=== PATIENT | female | born 1980 | race Caucasian/White ===

== ENCOUNTER → 2016-11-30 | Outpatient (CLI) | payer MEDICAID ==
--- NOTE | 2016-11-30 15:55 | RADIOLOGY REPORT (SQ) ---
EXAM DESCRIPTION: U/S [id number] TRNABD 1GES W/ODOP COMPLETED DATE/TIME: 11/30/2016 3:17 pm REASON FOR STUDY: ENCOUNTER FOR SUPERVISION OF NORMAL , FIRST TRIMESTER COMPARISON: None. TECHNIQUE: Transabdominal static and realtime grayscale images acquired of the pelvis. Additional se lected spectral and color Doppler images recorded. All images stored on PACs. bHCG: Not available. LIMITATIONS: None. FINDINGS: FETUS: Living intrauterine . EGA: 7 week 1 day. HARRIETT: 07/18/2017. FHR: 141 beats per minute. SUBCHORIONIC BLEED: No. SIZE OF BLEED: Not applicable. UTERUS: No masses. No anomalies. CERVICAL LENGTH: 3.1 cm. Closed. RIGHT ADNEXA: Normal ovary with normal vascular flow. No adnexal free fluid. 2.0 cm cyst. LEFT ADNEXA: Normal ovary with normal vascular flow. No adnexal free fluid. No adnexal masses. FREE FLUID: None. OTHER: No other significant finding. IMPRESSION: LIVING INTRAUTERINE . EGA 7 WEEK 1 DAY. Trimester of : First - 0 to 13 weeks. TECHNICAL DOCUMENTATION: JOB ID: [id number] [employer]- All Rights Reserved
== END ==
LOC: RAD 14:43
PROVIDERS: ATTEND Obstetrics & Gynecology
DX: Z34.91 Encounter for supervision of normal pregnancy, unspecified, first trimester (principal)
CPT/HCPCS: 76801

== ENCOUNTER 2017-02-04 15:35 | Emergency (ER) | payer MEDICAID | END 2017-02-04 15:58 | disposition left against medical advice (07) | LOC: ER 15:35 | DX: Z53.21 Procedure and treatment not carried out due to patient leaving prior to being seen by health care provider (principal) ==

== ENCOUNTER 2017-02-22 12:30 | Emergency (ER) | payer MEDICAID ==
[2017-02-22] MEDS ORDERED: METOCLOPRAMIDE HCL 10 MG TABLET PO ONE (12:57)
[2017-02-22] MEDS ORDERED: DIPHENHYDRAMINE HCL 25 MG CAPSULE PO ONE (12:58)
--- NOTE | 2017-02-22 12:59 | ER Document Report ---
ED Medical Screen (RME) - General Chief Complaint: Vomiting Stated Complaint: VOMITING Time Seen by Provider: 02/22/17 12:51 Notes: This 36-year-old female patient who is 20 weeks comes emergency room complaining of onset about 3 PM yesterday of nausea, vomiting, abdominal cramps , headache. She checked in on 02/04/2017 with similar symptoms but left without being seen. Her current medications are directly just, Xanax, Celexa, and Ultram. There is no bleeding, there is no discharge. I have greeted and performed a rapid initial assessment of this patient. A comprehensive ED assessment and evaluation of the patient, analysis of test results and completion of the medical decision making process will be conducted by additional ED providers. TRAVEL OUTSIDE OF THE [place] IN LAST 30 DAYS: No - Related Data Allergies/Adverse Reactions: No Known Allergies Allergy (Verified 05/18/13 08:18) Past Medical History - Social History Frequency of alcohol use: None Drug Abuse: None Family history: Reviewed & Not Pertinent Neurological Medical History: Reports: Hx Migraine Renal/ Medical History: Reports: Hx Kidney Stones. Denies: Hx Peritoneal Dialysis Psychiatric Medical History: Reports: Hx Depression - Immunizations Hx Diphtheria, Pertussis, Tetanus Vaccination: No Physical Exam - Vital signs Vitals: Temp Pulse Resp BP Pulse Ox 97.9 F 77 15 121/71 99 02/22/17 12:33 02/22/17 12:33 02/22/17 12:33 02/22/17 12:33 02/22/17 12:33 Course - Vital Signs Vital signs: Temp Pulse Resp BP Pulse Ox 97.9 F 77 15 121/71 99 02/22/17 12:33 02/22/17 12:33 02/22/17 12:33 02/22/17 12:33 02/22/17 12:33
[2017-02-22 13:37] LABS: ABSOLUTE LYMPHOCYTES (AUTO) 1.4 10^3/uL (0.5-4.7); ABSOLUTE MONOCYTES (AUTO) 0.3 10^3/uL (0.1-1.4); ABSOLUTE NEUT (AUTO) 6.1 10^3/uL (1.7-8.2); BASOPHILS % (AUTO) 0.1 % (0-2); EOSINOPHILS % (AUTO) 0.4 % (0-6); HEMATOCRIT 34.4 % (36.0-47.0); HEMOGLOBIN 12.1 g/dL (12.0-15.5); HGB HCT DIFFERENCE 1.9; LYMPHOCYTES % (AUTO) 17.4 % (13-45); MEAN CORPUSCULAR HGB CONC 35.1 g/dL (32.0-36.0); MEAN CORPUSCULAR VOLUME 91 fl (80-97); MONOCYTES % (AUTO) 4.4 % (3-13); RED BLOOD COUNT 3.78 10^6/uL (3.72-5.28); RED CELL DISTRIBUTION WIDTH 13.1 % (11.5-14.0); SEGMENTED NEUTROPHILS % (AUTO) 77.7 % (42-78); WHITE BLOOD COUNT 7.8 10^3/uL (4.0-10.5)
[2017-02-22 13:46] LABS: AMORPHOUS SEDIMENT,URINE TRACE /HPF; APPEARANCE,URINE SLIGHTLY-CLOUDY; BILIRUBIN,URINE NEGATIVE (NEGATIVE); GLUCOSE, URINE NEGATIVE (NEGATIVE); KETONES,URINE NEGATIVE (NEGATIVE); LEUKOCYTE ESTERASE,URINE NEGATIVE (NEGATIVE); NITRITE,URINE NEGATIVE (NEGATIVE); PROTEIN,URINE NEGATIVE (NEGATIVE); URINE SPECIFIC GRAVITY 1.012; UROBILINOGEN,URINE NEGATIVE mg/dL (<2.0)
[2017-02-22 13:53] LABS: ALANINE AMINOTRANSFERASE 24 U/L (9-52); ALBUMIN 4.1 g/dL (3.5-5.0); ALKALINE PHOSPHATASE 49 U/L (38-126); ANION GAP 11 (5-19); ASPARTATE AMINO TRANSFERASE 18 U/L (14-36); BILIRUBIN,DIRECT 0.3 mg/dL (0.0-0.4); BILIRUBIN,TOTAL 0.4 mg/dL (0.2-1.3); BLOOD UREA NITROGEN 6 mg/dL (7-20); CALCIUM 9.4 mg/dL (8.4-10.2); CARBON DIOXIDE 23 mmol/L (22-30); CHLORIDE 105 mmol/L (98-107); CREATININE RESULT 0.46 mg/dL (0.52-1.25); GLUCOSE 91 mg/dL (75-110); POTASSIUM 3.8 mmol/L (3.6-5.0); SODIUM 138.5 mmol/L (137-145); TOTAL PROTEIN 7.4 g/dL (6.3-8.2)
--- NOTE | 2017-02-22 13:54 | ER Document Report ---
ED General - General Chief Complaint: Vomiting Stated Complaint: VOMITING Time Seen by Provider: 02/22/17 12:51 Mode of Arrival: Ambulatory Information source: Patient Notes: 36-year-old female who is 20 weeks presents with complaints of nausea vomiting since eating yesterday. Patient denies any fevers or chills notes she has vomited multiple times. Denies any diarrhea. Denies any abdominal pain vaginal bleeding TRAVEL OUTSIDE OF THE [place] IN LAST 30 DAYS: No - HPI Onset: Yesterday Onset/Duration: Sudden Quality of pain: Cramping Severity: Mild Pain Level: 1 Associated symptoms: Nausea, Vomiting Exacerbated by: Denies Relieved by: Denies Similar symptoms previously: No Recently seen / treated by doctor: No - Related Data Allergies/Adverse Reactions: No Known Allergies Allergy (Verified 05/18/13 08:18) Home Medications: Current Home Medications Citalopram Hydrobromide [Citalopram HBr] 1 tab PO DAILY 02/22/17 [History] Ondansetron [Ondansetron Odt] 1 tab SL Q4H 02/22/17 [History] Tramadol HCl [Tramadol HCl] 2 tab PO BID 02/22/17 [History] Past Medical History - Social History Smoking Status: Former Smoker Cigarette use (# per day): No Chew tobacco use (# tins/day): No Smoking Education Provided: No Frequency of alcohol use: None Drug Abuse: None Family History: Reviewed & Not Pertinent Patient has suicidal ideation: No Patient has homicidal ideation: No Neurological Medical History: Reports: Hx Migraine Renal/ Medical History: Reports: Hx Kidney Stones. Denies: Hx Peritoneal Dialysis Psychiatric Medical History: Reports: Hx Depression - Immunizations Hx Diphtheria, Pertussis, Tetanus Vaccination: No Review of Systems - Review of Systems Notes: REVIEW OF SYSTEMS: CONSTITUTIONAL : Denies fever, chills, or sweats. Denies recent illness. EENT: Denies eye, ear, throat, or mouth pain or symptoms. Denies nasal or sinus congestion or discharge. Denies throat, tongue, or mouth swelling or difficulty swallowing. CARDIOVASCULAR: Denies chest pain. Denies palpitations or racing or irregular heart beat. Denies ankle edema. RESPIRATORY: Denies cough, cold, or chest congestion. Denies shortness of breath, difficulty breathing, or wheezing. GASTROINTESTINAL: Admits to nausea vomiting GENITOURINARY: Denies difficulty urinating, painful urination, burning, frequency, blood in urine, or discharge. FEMALE GENITOURINARY: Denies vaginal bleeding, heavy or abnormal periods, irregular periods. Denies vaginal discharge or odor. MUSCULOSKELETAL: Denies back or neck pain or stiffness. Denies joint pain or swelling. SKIN: Denies rash, lesions or sores. HEMATOLOGIC : Denies easy bruising or bleeding. LYMPHATIC: Denies swollen, enlarged glands. NEUROLOGICAL: Denies confusion or altered mental status. Denies passing out or loss of consciousness. Denies dizziness or lightheadedness. Denies headache. Denies weakness or paralysis or loss of use of either side. Denies problems with gait or speech. Denies sensory loss, numbness, or tingling. Denies seizures. PSYCHIATRIC: Denies anxiety or stress. Denies depression, suicidal ideation, or homicidal ideation. ALL OTHER SYSTEMS REVIEWED AND NEGATIVE. PHYSICAL EXAMINATION: GENERAL: Well-appearing, well-nourished and in no acute distress. HEAD: Atraumatic, normocephalic. EYES: Pupils equal round and reactive to light, extraocular movements intact, conjunctiva are normal. ENT: Nares patent, oropharynx clear without exudates. Moist mucous membranes. NECK: Normal range of motion, supple without lymphadenopathy LUNGS: Breath sounds clear to auscultation bilaterally and equal. No wheezes rales or rhonchi. HEART: Regular rate and rhythm without murmurs ABDOMEN: Soft, gravid abdomen nontender Female : deferred Musculoskeletal: Normal range of motion, no pitting or edema. No cyanosis. NEUROLOGICAL: Cranial nerves grossly intact. Normal speech, normal gait. Normal sensory, motor exams PSYCH: Normal mood, normal affect. SKIN: Warm, Dry, normal turgor, no rashes or lesions noted. Dictation was performed using [employer] voice recognition software Physical Exam - Vital signs Vitals: Temp Pulse Resp BP Pulse Ox 97.9 F 77 15 121/71 99 02/22/17 12:33 02/22/17 12:33 02/22/17 12:33 02/22/17 12:33 02/22/17 12:33 Course - Re-evaluation Re-evalutation: 02/22/17 14:23 Patient was given oral medication and subsequently vomited that back, she will be given IV fluids 02/22/17 16:17 Pt notes she is feeling better, will dc home with nausea medication and follow up 02/22/17 16:34 After performing a Medical Screening Examination, I estimate there is LOW risk for ACUTE APPENDICITIS, BOWEL OBSTRUCTION, ACUTE CHOLECYSTITIS, PERFORATED DIVERTICULITIS, INCARCERATED HERNIA, PANCREATITIS, PELVIC INFLAMMATORY DISEASE, PERFORATED ULCER, ECTOPIC , or TUBO-OVARIAN ABSCESS, thus I consider the discharge disposition reasonable. Also, there is no evidence or peritonitis , sepsis, or toxicity. I have reevaluated this patient multiple times and no significant life threatening changes are noted. The patient and I have discussed the diagnosis and risks, and we agree with discharging home with close follow-up with the understanding that symptoms and presentations can change. We also discussed returning to the Emergency Department immediately if new or worsening symptoms occur. We have discussed the symptoms which are most concerning (e.g., bloody stool, fever, changing or worsening pain, vomiting) that necessitate immediate return. - Vital Signs Vital signs: Temp Pulse Resp BP Pulse Ox 97.9 F 77 15 121/71 99 02/22/17 12:33 02/22/17 12:33 02/22/17 12:33 02/22/17 12:33 02/22/17 12:33 - Laboratory Result Diagrams: 02/22/17 13:19 02/22/17 13:19 Laboratory results interpreted by me: 02/22/17 02/22/17 13:19 13:19 Hct 34.4 L BUN 6 L Creatinine 0.46 L Discharge - Discharge Clinical Impression: Nausea/vomiting in Condition: Stable Disposition: HOME, SELF-CARE Instructions: Antinausea Medication ([facility]) Prescriptions: Ondansetron HCl [Zofran 8 mg Tablet] 8 mg PO Q8HP PRN #30 tablet PRN Reason: Promethazine HCl [Phenergan 25 mg Supp.rect] 1 supp RI Q6H #12 supp.rect Referrals: KIMBERLY WORTHINGTON PA [Primary Care Provider] - Follow up tomorrow
[2017-02-22] MEDS ORDERED: NORMAL SALINE 1000 ML 1,000 ML IV ONE (14:15)
[2017-02-22] MEDS ORDERED: PROMETHAZINE HCL INJ 25 MG/1 ML VIAL IM ONE (14:16)
[2017-02-22] MEDS ORDERED: ONDANSETRON HCL INJ/PF 4 MG/2 ML SDV IV ONE (16:24)
[2017-02-22 16:43] VITALS: BP 111/65
== END 2017-02-22 17:00 | disposition home or self-care (01) ==
LOC: ER 12:30
DX: R11.2 Nausea with vomiting, unspecified (principal); Z3A.20 20 weeks gestation of pregnancy; Z79.899 Other long term (current) drug therapy; Z87.891 Personal history of nicotine dependence
CPT/HCPCS: 99284; 36415; 85025; 80053; 81001; J3490 ×2; J2550; J2405; J7030

== ENCOUNTER 2017-05-18 08:45 | Outpatient (CLI) | payer MEDICAID ==
[2017-05-18 09:33] LABS: APPEARANCE,URINE CLEAR; BILIRUBIN,URINE NEGATIVE (NEGATIVE); GLUCOSE, URINE NEGATIVE (NEGATIVE); KETONES,URINE NEGATIVE (NEGATIVE); LEUKOCYTE ESTERASE,URINE NEGATIVE (NEGATIVE); NITRITE,URINE NEGATIVE (NEGATIVE); PROTEIN,URINE NEGATIVE (NEGATIVE); URINE SPECIFIC GRAVITY 1.012; UROBILINOGEN,URINE NEGATIVE mg/dL (<2.0)
[2017-05-18 09:50] LABS: URINE METHADONE SCREEN NEGATIVE; URINE OPIATES LOW NEGATIVE; URINE PHENCYCLIDINE SCREEN NEGATIVE
[2017-05-18 09:57] LABS: URINE BARBITURATES SCREEN UNCONFIRMED POSITIVE
--- NOTE | 2017-05-18 13:04 | RADIOLOGY REPORT (SQ) ---
EXAM DESCRIPTION: U/S OB LIMITED COMPLETED DATE/TIME: 05/18/2017 12:40 pm REASON FOR STUDY: Cervical length, R/O PTL COMPARISON: OB ultrasound 11/30/2016 TECHNIQUE: Limited transabdominal grayscale ultrasound for evaluation of specific requested obstetri donell parameters. LIMITATIONS: None. FINDINGS: CERVICAL LENGTH: 4.6 cm Closed. FHR: 130 beats per minute. PRESENTATION: Breech OTHER: No other significant findings. IMPRESSION: LIMITED OBSTETRICAL ULTRASOUND WITH MEASURED PARAMETERS DELINEATED ABOVE. Trimester of : Third trimester - 28 weeks to delivery. TECHNICAL DOCUMENTATION: JOB ID: [id number] [employer]- All Rights Reserved
== END 2017-05-18 13:55 | disposition home or self-care (01) ==
LOC: LC 08:45
PROVIDERS: ATTEND Student in an Organized Health Care Education/Training Program
PROC: 4A1HXCZ Monitoring of Products of Conception, Cardiac Rate, External Approach (ICD-10-PCS; principal; 2017-05-18)
DX: O47.1 False labor at or after 37 completed weeks of gestation (principal); O36.8130 Decreased fetal movements, third trimester, not applicable or unspecified; O09.523 Supervision of elderly multigravida, third trimester; Z3A.31 31 weeks gestation of pregnancy
CPT/HCPCS: 59899; 81001; 80307; 76815; Q0114

== ENCOUNTER 2017-05-29 13:00 | Outpatient (CLI) | payer MEDICAID ==
[2017-05-29 13:49] LABS: APPEARANCE,URINE SLIGHTLY-CLOUDY; BILIRUBIN,URINE NEGATIVE (NEGATIVE); GLUCOSE, URINE NEGATIVE (NEGATIVE); KETONES,URINE NEGATIVE (NEGATIVE); LEUKOCYTE ESTERASE,URINE NEGATIVE (NEGATIVE); NITRITE,URINE NEGATIVE (NEGATIVE); PROTEIN,URINE NEGATIVE (NEGATIVE); URINE SPECIFIC GRAVITY 1.008; UROBILINOGEN,URINE NEGATIVE mg/dL (<2.0)
[2017-05-29 13:56] LABS: URINE METHADONE SCREEN NEGATIVE; URINE OPIATES LOW NEGATIVE; URINE PHENCYCLIDINE SCREEN NEGATIVE
[2017-05-29 14:05] LABS: URINE BARBITURATES SCREEN UNCONFIRMED POSITIVE
--- NOTE | 2017-05-29 15:25 | Non Stress Test Report ---
Non Stress Test Datetime Report Generated by CPN: 05/29/2017 15:25 DEMOGRAPHIC EGA NST: 32.4 INDICATION Indication for Study: Other MONITORING Monitor Explained: Monitor Explained; Test Explained; Patient Verbalized Understanding Time on Monitor: 05/29/2017 13:22 Time off Monitor: 05/29/2017 13:51 NST Duration: 29 NST INTERVENTIONS NST Interventions: None Physician Notified NST: Dr. Taylor-Jeison BABY A: [id number] BABY A Movement : Present Contraction Frequency : irregular (Annotations: Data stored by [facility] on behalf of user) FHR Baseline : 140 Accelerations : 15X15 Decelerations : None Variability : Moderate 6-25bpm NST Review: Meets Criteria for Reactive NST NST Review and Verified By : ALEXY Dumont Results: Reactive NST REPORT Report Trigger: Send Report
== END 2017-05-29 15:25 | disposition home or self-care (01) ==
LOC: LC 13:00
PROVIDERS: ATTEND Obstetrics & Gynecology
DX: O99.89 Other specified diseases and conditions complicating pregnancy, childbirth and the puerperium (principal); M54.9 Dorsalgia, unspecified; Z3A.32 32 weeks gestation of pregnancy
CPT/HCPCS: 59025; 80307; 81001

== ENCOUNTER 2017-07-08 19:09 | Inpatient (IN) | payer MEDICAID ==
[2017-07-08] MEDS ORDERED: RINGERS SOLUTION,LACTATED 300 ML IV ONE (20:01)
[2017-07-08 20:21] LABS: ABSOLUTE LYMPHOCYTES (AUTO) 1.5 10^3/uL (0.5-4.7); ABSOLUTE MONOCYTES (AUTO) 0.5 10^3/uL (0.1-1.4); ABSOLUTE NEUT (AUTO) 4.8 10^3/uL (1.7-8.2); BASOPHILS % (AUTO) 0.5 % (0-2); EOSINOPHILS % (AUTO) 0.4 % (0-6); HEMATOCRIT 31.9 % (36.0-47.0); HEMOGLOBIN 10.7 g/dL (12.0-15.5); LYMPHOCYTES % (AUTO) 21.3 % (13-45); MEAN CORPUSCULAR HEMOGLOBIN 30.2 pg (27.0-33.4); MEAN CORPUSCULAR HGB CONC 33.5 g/dL (32.0-36.0); MEAN CORPUSCULAR VOLUME 90 fl (80-97); MONOCYTES % (AUTO) 7.5 % (3-13); PLATELET COUNT 221 10^3/uL (150-450); RED BLOOD COUNT 3.54 10^6/uL (3.72-5.28); RED CELL DISTRIBUTION WIDTH 14.1 % (11.5-14.0); SEGMENTED NEUTROPHILS % (AUTO) 70.3 % (42-78); TOTAL CELLS COUNTED % (AUTO) 100 %; WHITE BLOOD COUNT 6.8 10^3/uL (4.0-10.5)
[2017-07-08 20:33] LABS: APPEARANCE,URINE CLOUDY; BILIRUBIN,URINE NEGATIVE (NEGATIVE); COLOR,URINE YELLOW; GLUCOSE, URINE NEGATIVE (NEGATIVE); KETONES,URINE NEGATIVE (NEGATIVE); LEUKOCYTE ESTERASE,URINE NEGATIVE (NEGATIVE); NITRITE,URINE NEGATIVE (NEGATIVE); PROTEIN,URINE NEGATIVE (NEGATIVE); URINE SPECIFIC GRAVITY 1.009; UROBILINOGEN,URINE NEGATIVE mg/dL (<2.0)
[2017-07-08 20:39] LABS: ALANINE AMINOTRANSFERASE 26 U/L (9-52); ALBUMIN 3.1 g/dL (3.5-5.0); ALKALINE PHOSPHATASE 169 U/L (38-126); ANION GAP 8 (5-19); ASPARTATE AMINO TRANSFERASE 15 U/L (14-36); BILIRUBIN,DIRECT 0.1 mg/dL (0.0-0.4); BILIRUBIN,TOTAL 0.2 mg/dL (0.2-1.3); BLOOD UREA NITROGEN 8 mg/dL (7-20); CALCIUM 8.9 mg/dL (8.4-10.2); CARBON DIOXIDE 22 mmol/L (22-30); CHLORIDE 106 mmol/L (98-107); GLUCOSE 87 mg/dL (75-110); POTASSIUM 4.3 mmol/L (3.6-5.0); SODIUM 136.4 mmol/L (137-145); TOTAL PROTEIN 5.9 g/dL (6.3-8.2)
[2017-07-08 20:49] LABS: URINE AMPHETAMINES SCREEN NEGATIVE; URINE COCAINE SCREEN NEGATIVE; URINE MARIJUANA (THC) SCREEN NEGATIVE; URINE METHADONE SCREEN NEGATIVE; URINE PHENCYCLIDINE SCREEN NEGATIVE
[2017-07-08] MEDS ORDERED: ACETAMINOPHEN 325 MG TABLET PO PRN (20:55)
[2017-07-08] MEDS ORDERED: MAG HYDROX/AL HYDROX/SIMETH SUSP 30 ML UDCUP PO PRN (20:55)
[2017-07-08] MEDS ORDERED: DINOPROSTONE 10 MG VAGINAL INSERT.SR PV PRN (20:55)
[2017-07-08] MEDS ORDERED: DINOPROSTONE 10 MG VAGINAL INSERT.SR ONE (20:59)
[2017-07-08 21:06] LABS: URINE BARBITURATES SCREEN UNCONFIRMED POSITIVE; URINE BENZODIAZEPINES SCREEN UNCONFIRMED POSITIVE
[2017-07-08] MEDS ORDERED: ZOLPIDEM TARTRATE 5 MG TABLET ONE (22:52)
[2017-07-08] MEDS: ZOLPIDEM TARTRATE 5 MG TABLET PO SCH (22:56)
[2017-07-08] MEDS: RINGERS SOLUTION,LACTATED 1,000 ML IV PRN (23:06)
[2017-07-09] MEDS: RINGERS SOLUTION,LACTATED 1,000 ML IV PRN (01:56)
[2017-07-09] MEDS ORDERED: NALBUPHINE HCL INJ 10 MG/1 ML AMPULE INJ ONE (03:38)
[2017-07-09] MEDS ORDERED: PROMETHAZINE HCL INJ 25 MG/1 ML VIAL IV ONE (03:38)
[2017-07-09] MEDS ORDERED: NALBUPHINE HCL INJ 10 MG/1 ML AMPULE ONE (03:43)
[2017-07-09] MEDS ORDERED: PROMETHAZINE HCL INJ 25 MG/1 ML VIAL ONE (03:44)
[2017-07-09] MEDS ORDERED: ONDANSETRON HCL INJ/PF 4 MG/2 ML SDV ONE (10:30)
[2017-07-09] MEDS ORDERED: OXYTOCIN/NORMAL SALINE 20 UNIT/1,000 ML RTUINJ ONE (10:47)
--- NOTE | 2017-07-09 14:21 | L&D Progress Notes ---
PROGRESS NOTES Datetime Report Generated by CPN: 07/09/2017 14:21 PROGRESS NOTE Impression Other: IOL-stable Procedures: Artificial ROM; Scalp Electrode Plan: Continue Present Management Informed Consent Obtained: Vaginal Delivery; Induction of Labor; Risks, Benefits and Alternatives Discussed Vital Signs : Reviewed; Within Normal Limits Comment: S: pt. breathing with contractions, thinking about epidural O: VSS, cervix as stated, pit @ 5mu/min A: IUP @ 38w3d IOL secondary to polyhydramnious and uncontrolled GDM A2, AROM with FSE-Very large amount of clear amniotic fluid-pt. and baby tolerated well P: continue IOL with pitocin will increase pit by 2mu/min every 15min starting now. Epidural prn. VAGINAL EXAM Dilatation: 4 Dilatation: 2 Effacement: 80 Effacement: 10 Station: -2 Station: -2 Contractions: q3 MEMBRANES Pooling: Negative Membranes: Ruptured Membranes: Intact Amniotic Fluid Color: Clear FETUS A Monitoring: External US FHR Category: Category I : 38.0 Estimated Weight (gm): 4000 Presentation: Vertex SIGNATURE SIGNATURE: ,[id number];,[id number] SIGNATURE: ,[id number] Assignment: Beverly Royal MD Signature: with User ID: [email or web address] : with User ID: [email or web address]
[2017-07-09] MEDS ORDERED: BUPIVACAINE HCL 0.25 % INJ/PF (2.5 MG/1 ML) 30 ML VIAL ONE (14:34)
[2017-07-09] MEDS ORDERED: EPHEDRINE SULFATE INJ 50 MG/1 ML AMPULE ONE (14:34)
[2017-07-09] MEDS ORDERED: FENTANYL CITRATE INJ/PF 100 MCG/2 ML AMPUL ONE (14:34)
[2017-07-09] MEDS ORDERED: FENTANYL/BUPIVACAINE/NS/PF 200 MCG/100 ML RTUINJ EPI ONE (14:34)
[2017-07-09] MEDS ORDERED: PHENYLEPHRINE HCL INJ/PF 10 MG/1 ML SDV ONE (14:34)
[2017-07-09] MEDS ORDERED: MISOPROSTOL 0.2 MG TABLET ONE (14:35)
[2017-07-09] MEDS ORDERED: LIDOCAINE 1% INJ-PF (10 MG/ML) 30 ML SDV ONE (14:35)
--- NOTE | 2017-07-09 15:54 | L&D Progress Notes ---
PROGRESS NOTES Datetime Report Generated by CPN: 07/09/2017 15:53 PROGRESS NOTE Impression: Normal Progression of Labor Procedures: Sterile Vag Exam Plan: Continue Present Management Informed Consent Obtained: Vaginal Delivery; Risks, Benefits and Alternatives Discussed Vital Signs : Reviewed; Within Normal Limits Comment: Pt reports feeling pressure after epidural. Cvx 5/90/-1. Anticipate . Pelvis adequate for PAULINA. will continue pitocin - currently at 10. VAGINAL EXAM Dilatation: 5 Effacement: 90 Station: -1 FETUS A FHR - Baseline: 155 Monitoring: External US Variability: Moderate 6-25bpm Accelerations: 15X15 Decelerations: None FETUS C SIGNATURE: [id number];[id number] Signature: with User ID: [email or web address]
[2017-07-09] MEDS ORDERED: SODIUM BICARBONATE 8.4% INJ 50 MEQ/50 ML DISP.SYRIN ONE (16:28)
[2017-07-09] MEDS ORDERED: LIDOCAINE 2%/EPINEPHRINE INJ 20 ML VIAL ONE (16:29)
[2017-07-09] MEDS ORDERED: NA PHOS,M-B/NA PHOS,DI-BA (ADULT) 133 ML ENEMA PR PRN (20:15)
[2017-07-09] MEDS ORDERED: BENZOCAINE/MENTHOL AEROSOL SPRAY 56 ML TOP PRN (20:15)
[2017-07-09] MEDS ORDERED: DIPH/PERTUSS(ACELL)/TETANUS VAC/PF 0.5 ML SYR (>=10YO) IM PRN (20:15)
[2017-07-09] MEDS ORDERED: PROMETHAZINE HCL INJ 25 MG/1 ML VIAL IV PRN (20:15)
[2017-07-09] MEDS ORDERED: MEASLES,MUMPS&RUBELLA VACC/PF 0.5 ML VIAL SUBCUT PRN (20:15)
[2017-07-09] MEDS ORDERED: PROMETHAZINE HCL 25 MG TABLET PO PRN (20:15)
[2017-07-09] MEDS ORDERED: GLYCERIN/WITCH HAZEL LEAF 1 EACH MED..PAD TP PRN (20:15)
[2017-07-09] MEDS ORDERED: MAGNESIUM HYDROXIDE SUSP 30 ML UDCUP PO PRN (20:15)
[2017-07-09] MEDS ORDERED: ACETAMINOPHEN WITH CODEINE #3 TABLET PO PRN (20:15)
[2017-07-09] MEDS ORDERED: DIPHENHYDRAMINE HCL 25 MG CAPSULE PO PRN (20:15)
[2017-07-09] MEDS ORDERED: ACETAMINOPHEN 650 MG SUPP.RECT PR PRN (20:15)
[2017-07-09] MEDS ORDERED: PSEUDOEPHEDRINE HCL 30 MG TABLET PO PRN (20:15)
[2017-07-09] MEDS ORDERED: PROMETHAZINE HCL 25 MG SUPP.RECT PR PRN (20:15)
[2017-07-09] MEDS ORDERED: OXYTOCIN/NORMAL SALINE 20 UNIT/1,000 ML RTUINJ IV PRN (20:15)
[2017-07-09] MEDS ORDERED: DIBUCAINE 1% OINTMENT 28 GM TP PRN (20:15)
[2017-07-09] MEDS ORDERED: ZOLPIDEM TARTRATE 5 MG TABLET PO PRN (20:15)
[2017-07-09] MEDS: IBUPROFEN 800 MG TABLET PO SCH (21:05)
--- NOTE | 2017-07-09 21:18 | Warning Signs in Babies ---
VOD Warning Signs Datetime Report Generated by JOAN: 07/09/2017 21:18 VOD#608 -Warning Signs in Babies: Viewed with Parent(s)/Family (Annotations: Data stored by JOAN on behalf of user) (05/18/2017 09:27:Lily Chiang RN)
--- NOTE | 2017-07-09 22:10 | Admission Physical ---
Datetime Report Generated by CPN: 07/09/2017 22:09 CURRENT ADMISSION Chief Complaint: Scheduled Induction of Labor Indication for Induction: Macrosomia; Polyhydramnios Indication for Induction: Term, Intrauterine ; Intact Membranes; Induction of Labor Indication for Induction- Other: GDM that has not been well controlled Admit Plan: Admit to Unit; Initiate Labor Induction Protocol ALLERGIES Medication Allergies: No Medication Allergies: No Known Allergies (07/08/2017) Medication Allergies: No Known Allergies (05/18/2017) Medication Allergies: No Known Allergies (05/18/2013) Latex: No Latex Allergies Food Allergies: none Environmental Allergies: none OBSTETRICAL HISTORY EDC: 07/20/2017 00:00 : 5 Para: 2 Term: 2 : 0 SAB: 2 IAB: 0 Ectopic: 1 Livin Cesareans: 0 VBACs: 0 Multiple Births: 0 Gestational Diabetes: Yes Rh Sensitization: No Incompetent Cervix: No TIARRA: No Infertility: No ART Treatment: No Uterine Anomaly: No IUGR: No Hx Previous C/S: No Macrosomia: No Hx Loss/Stillborn: No PIH: No Hx : No Placenta Previa/Abruption: No Depression/PP Depression: Yes PTL/PROM: No Post Hemorrhage: No Current Procedures: Ultrasound; NST; BPP Obstetrical History Comments: G1: 1998 G2: SAB 13 weeks G3: 2012 G4: SAB 07/2015 G5: ectopic 02/2016 G6: current, polyhydramnios, GDM-on glyburide; expected large @ 4089 grams/9lbs SEE RECORDS Alcohol: No Marijuana : No Cocaine: No Other Illicit Drugs: No Cigarettes: Former Smoker. [id number] MEDICAL HISTORY Diabetes: Yes Blood Transfusion: No Pulmonary Disease (Asthma, TB): No Breast Disease: No Hypertension: No Web Analytics Specialist Surgery: No Heart Disease: No Hosp/Surgery: Yes Autoimmune Disorder: No Anesthetic Complications: No Kidney Disease: No Abnormal Pap Smear: Yes Neuro/Epilepsy: No Psychiatric Disorders: Yes Other Medical Diseases: No Hepatitis/Liver Disease: No Significant Family History: No Varicosities/Phlebitis: No Trauma/Violence : No Thyroid Dysfunction: No Medical History Comments: kidney stones, depression-on celexa, anxiety, abnl paps w/colpo-ASCUS _ +HRHPV, migraines-on fioricet INFECTIOUS HISTORY Gonorrhea: No Genital Herpes: No Chlamydia: Yes Tuberculosis: No Syphilis: No Hepatitis: No HIV/AIDS Exposure: No Rash or Viral Illness: No HPV: Yes Infectious History Comments: Chlamydia 15 yo, + HRHPV PHYSICAL EXAM General: Normal HEENT: Normal Neurologic: Normal Thyroid: Normal Heart: Normal Lungs: Normal Breast: Deferred Back: Normal Abdomen: Normal Genitourinary Exam: Normal Extremities: Normal DTRs: Normal Pelvic Type: Adequate Vital Signs: Reviewed VAGINAL EXAM Dilatation: 5 Dilatation: 4 Dilatation: 2 Effacement: 90 Effacement: 80 Effacement: 10 Station: -1 Station: -2 Station: -2 Contraction Comments: q3 MEMBRANES Pooling: Negative Membranes: Ruptured Membranes: Intact Amniotic Fluid Color: Clear FETUS A EGA: 38.2 Monitoring: External US FHR- Baseline: 120 Variability: Moderate 6-25bpm Accelerations: 15X15 Decelerations: None FHR Category: Category I Estimated Weight (gm): 4000 Presentation: Vertex Admit Comment: Pt discussed with MFM. Induction this week recomended. Risk of shoulder dystocia discussed. Vaginal delivery attempt recomended as the EFW is less than 4500gm. PLANS FOR LABOR AND DELIVERY Labor and Delivery: None Pain Management: Epidural Feeding Preference: Both Benefit of Breast Feed Discussed: Yes Circumcision: Yes INFORMED CONSENT Informed Consent Obtained: Vaginal Delivery; Risks, Benefits and Alternatives Discussed Informed Consent Obtained: Vaginal Delivery; Induction of Labor; Risks, Benefits and Alternatives Discussed Signature: with User ID: [email or web address]
[2017-07-09] MEDS: ACETAMINOPHEN WITH CODEINE #3 TABLET PO PRN (23:55)
[2017-07-10] MEDS: FAMOTIDINE 20 MG TABLET PO SCH ×3 (03:27→21:09)
[2017-07-10] MEDS: ZOLPIDEM TARTRATE 5 MG TABLET PO SCH (03:27)
--- NOTE | 2017-07-10 04:34 | Delivery Summary ---
Del Sum A-C Datetime Report Generated by CPN: 07/10/2017 04:34 DELIVERY PERSONNEL DELIVERY PERSONNEL: [id number] Delivery Doctor:: Beverly Royal MD Labor and Delivery Nurse:: Lily Chiang RN General Farmer/DANCING TEACHER: Ariadna Tre, ST MATERNAL INFORMATION Delivery Anesthesia: Epidural Medications After Delivery: Pitocin Bolus-Please Comment; Pitocin Drip 20 Units/1000ml NSS Estimated Blood Loss (ml): 350 Provider Comments: VMI delivered in MENDEZ presentation in hands and knees. No nuchal cord. Shoulders and body delivered without difficulty. Cord doubly clamped and cut and infant to maternal warmer for NRP and Nursery notified. Placenta delivered intac spontaneously after maternal position changed back to supine. 1st degree perineal laceration repaired in the usual fashion. Good hemostasis. FF at U. Mother stable upon provider leaving the room. Baby taken to the Nursery for transition due to retractions with normal O2 sats. Weight 8#9oz. Apgars 6/9 LABOR SUMMARY EDC: 07/20/2017 00:00 No. Babies in Womb: 1 Attempted: No Labor Anesthesia: Epidural LABOR INFORMATION Reason for Induction: Maternal Diabetes; Polyhydramnios Onset of Labor: 07/09/2017 14:00 Complete Dilatation: 07/09/2017 17:45 (Annotations: Data stored by N on behalf of user) Cervical Ripening Agents: Cervidil Oxytocin: Induction Group B Beta Strep: Negative Steroids Given: None Reason Steroids Not Administered: Not Applicable MEMBRANES Membranes Rupture Method: Artificial Rupture of Membranes: 07/09/2017 13:59 Length of Rupture (hr): 5.98 Amniotic Fluid Color: Clear Amniotic Fluid Amount: Large Amniotic Fluid Odor: Normal STAGES OF LABOR Stage 1 hr: 3 Stage 1 min: 45 Stage 2 hr: 2 Stage 2 min: 13 Stage 3 hr: 0 Stage 3 min: 4 Total Time in Labor hr: 6 Total Time in Labor min: 2 VAGINAL DELIVERY Episiotomy: None Laceration #1: Vaginal Laceration Extension #1: First Degree Laceration Repair: Yes Laceration Repair Note: 1st degree midline perineal laceartion repaired in the usual fashion. Good hemostasis. Sponge Count Correct: Yes Sharps Count Correct: Yes BABY A INFORMATION Infant Delivery Date/Time: 07/09/2017 19:58 Method of Delivery: Vaginal Born in Route : No : N/A Forceps: N/A Vacuum Extraction: N/A Shoulder Dystocia : No PRESENTATION/POSITION BABY A Presentation: Cephalic Cephalic Presentation: Vertex Vertex Position: Left Occipital Anterior Breech Presentation: N/A PLACENTA INFORMATION BABY A Placenta Delivery Time : 07/09/2017 20:02 Placenta Method of Delivery: Spontaneous Placenta Status: Delivered SCORES BABY A Heart Rate 1 min: >100 bpm Resp Effort 1 min: Slow, Irregular Reflex Irritability 1 min: Grimace Muscle Tone 1 min: Active Motion Color 1 min: Blue/Pale SCORE 1 MIN: 6 Heart Rate 5 min: >100 bpm Resp Effort 5 min: Good Cry Reflex Irritability 5 min: Cough or Sneeze or Pulls Away Muscle Tone 5 min: Active Motion Color 5 min: Body [place], Extremities Blue SCORE 5 MIN: 9 INFORMATION BABY A Gestational Age at Delivery: 38.3 Gestational Status: Early Term- 37- 38.6 Weeks Outcome : Liveborn Condition : Stable Sex: Male IDENTIFICATION BABY A Infant Verification Date/Time: 07/09/2017 20:09 ID Band Number: [id number] Mother's Name Verified: Yes RN Verifying : Kelly Herrera RN Additional Verifying Personnel: D. Talita WEIGHT/LENGTH BABY A Infant Birthweight (gm): 3880 Weight (lb): 8 Infant Weight (oz): 9 Infant Length (in): 20.00 Length (cm): 50.80 CORD INFORMATION BABY A No. Cord Vessels: 3 Nuchal Cord : N/A Cord Blood Taken: Yes-For Storage (Mom's Blood type +) Suction: Mouth; Nose; Pharynx ASSESSMENT BABY A Complications: Polyhydramnios Physical Findings at Delivery: Caput Succedaneum; Other Physical Findings- Other: distended abdomen Respirations: Intercostal Retractions; Nasal Flaring Skin to Skin: Yes Skin to Skin Time (min): 2 Healthcare Advisory Services Manager/ALS Called : No Infant Care By: Dl Polanco RN Transferred To: [facility] BABY B INFORMATION : N/A SIGNATURES Signature: with User ID: [email or web address]
[2017-07-10] MEDS: IBUPROFEN 800 MG TABLET PO SCH ×3 (06:17→21:09)
[2017-07-10] MEDS: ACETAMINOPHEN WITH CODEINE #3 TABLET PO PRN (06:21)
[2017-07-10 08:08] LABS: HEMATOCRIT 26.3 % (36.0-47.0); HEMOGLOBIN 8.9 g/dL (12.0-15.5); MEAN CORPUSCULAR HEMOGLOBIN 30.1 pg (27.0-33.4); MEAN CORPUSCULAR HGB CONC 33.7 g/dL (32.0-36.0); MEAN CORPUSCULAR VOLUME 89 fl (80-97); PLATELET COUNT 180 10^3/uL (150-450); RED BLOOD COUNT 2.95 10^6/uL (3.72-5.28); RED CELL DISTRIBUTION WIDTH 14.1 % (11.5-14.0)
[2017-07-10 08:14] LABS: WHITE BLOOD COUNT 13.7 10^3/uL (4.0-10.5)
[2017-07-10] MEDS: SENNOSIDES/DOCUSATE 8.6-50 MG 1 EACH TABLET PO SCH (09:11)
[2017-07-10] MEDS: PRENATAL VITAMIN W DHA CAPSULE PO SCH (09:12)
[2017-07-10] MEDS: FERROUS SULFATE 325 MG TABLET PO SCH ×2 (09:12→17:59)
[2017-07-10] MEDS: DOCUSATE SODIUM 100 MG CAPSULE PO SCH ×2 (09:12→17:59)
--- NOTE | 2017-07-10 10:15 | PDOC PROGRESS REPORT ---
Subjective-OB Subjective: Post Delivery Day: 37 year old. Denies any needs at this time Doing well, moderate bleeding, breast feeding, voiding, ambulating, eating well Physical Exam (OB) Vital Signs: Temp Pulse Resp BP Pulse Ox 97.9 F 88 15 111/56 L 98 07/10/17 08:14 07/10/17 08:14 07/10/17 08:14 07/10/17 08:14 07/10/17 08:14 Intake & Output 07/09/17 07/10/17 07/11/17 06:59 06:59 06:59 Weight 93.7 kg - Lochia Lochia Amount: Scant < 10 ml Lochia Color: Rubra/Red - Abdomen Description: Tender, Soft Hernia Present: No Fundal Description: Firm, Midline Fundal Height: u/u - u/2 Objective-Diagnostic Laboratory: 07/10/17 07:49 07/08/17 20:09 07/10/17 07:49 WBC 13.7 H D RBC 2.95 L Hgb 8.9 L Hct 26.3 L MCV 89 MCH 30.1 MCHC 33.7 RDW 14.1 H Plt Count 180 Assessment and Plan(PN) - Assessment and Plan (1) Spontaneous vaginal delivery Is this a current diagnosis for this admission?: Yes (2) Polyhydramnios in third trimester Qualifiers: Fetus number: single or unspecified fetus Qualified Code(s): O40.3XX0 - Polyhydramnios, third trimester, not applicable or unspecified Is this a current diagnosis for this admission?: Yes - Time Spent with Patient Time with patient: Less than 15 minutes Medications reviewed and adjusted accordingly: Yes - Disposition Anticipated Discharge: Home Within: within 24 hours
[2017-07-11] MEDS: ZOLPIDEM TARTRATE 5 MG TABLET PO SCH (00:44)
[2017-07-11] MEDS: IBUPROFEN 800 MG TABLET PO SCH (05:43)
[2017-07-11] MEDS: PRENATAL VITAMIN W DHA CAPSULE PO SCH (10:33)
[2017-07-11] MEDS: FERROUS SULFATE 325 MG TABLET PO SCH (10:33)
[2017-07-11] MEDS: SENNOSIDES/DOCUSATE 8.6-50 MG 1 EACH TABLET PO SCH (10:33)
[2017-07-11] MEDS: FAMOTIDINE 20 MG TABLET PO SCH (10:33)
[2017-07-11] MEDS: DOCUSATE SODIUM 100 MG CAPSULE PO SCH (10:34)
--- NOTE | 2017-07-11 10:50 | PDOC PROGRESS REPORT ---
Subjective-OB Subjective: Post Delivery Day: 37 year old. Denies any needs at this time Doing well, ready to go home, feeling good, scant bleeding, voiding, ambulating Physical Exam (OB) Vital Signs: Temp Pulse Resp BP Pulse Ox 97.5 F 69 16 97/48 L 98 07/11/17 07:45 07/11/17 07:45 07/11/17 07:45 07/11/17 07:45 07/11/17 07:45 Intake & Output 07/10/17 07/11/17 07/12/17 06:59 06:59 06:59 Intake Total 300 Balance 300 - Lochia Lochia Amount: Scant < 10 ml Lochia Color: Rubra/Red - Abdomen Description: Tender, Soft Hernia Present: No Fundal Description: Firm, Midline Fundal Height: u/u - u/2 Objective-Diagnostic Laboratory: 07/10/17 07:49 07/08/17 20:09 Assessment and Plan(PN) - Assessment and Plan (1) Spontaneous vaginal delivery Is this a current diagnosis for this admission?: Yes (2) Polyhydramnios in third trimester Qualifiers: Fetus number: single or unspecified fetus Qualified Code(s): O40.3XX0 - Polyhydramnios, third trimester, not applicable or unspecified Is this a current diagnosis for this admission?: Yes - Time Spent with Patient Time with patient: Less than 15 minutes Medications reviewed and adjusted accordingly: Yes - Disposition Anticipated Discharge: Home Within: Other - home today
--- NOTE | 2017-07-11 10:54 | PDOC DISCHARGE SUMMARY ---
Final Diagnosis Discharge Date: 07/11/17 - Final Diagnosis (1) Spontaneous vaginal delivery Is this a current diagnosis for this admission?: Yes (2) Polyhydramnios in third trimester Is this a current diagnosis for this admission?: Yes Discharge Data - Discharge Medication Home Medications: Alprazolam [Xanax] 0.25 mg PO PRN PRN 05/18/17 Butalb/Acetaminophen/Caffeine [Fioricet (50-325-40 mg) Tablet] 1 - 2 tab PO Q4H 05/18/17 Citalopram Hydrobromide [Celexa] 10 mg PO PRN PRN 05/18/17 Pnv 55/Iron Fum,B-G/Folic Acid [Natachew Tablet] 1 tab PO DAILY 07/08/17 Gestational Age: 38.3 Reason(s) for Admission: Induction of Labor, Obstetric Complications, Gestional Diabetes Admission Note: Polyhydramnios Procedures: NST, Ultrasound Intrapartum Procedure(s): Spontaneous Vaginal Delivery Complication(s): Laceration-Vaginal Laceration-Degree: 1st - [place] Data Baby 1 Male at 1 minute: 6 at 5 minutes: 9 Weight: 3.884 kg Home with Mother: Yes Complications: No - Diagnosis Test Laboratory: Temp Pulse Resp BP Pulse Ox 97.5 F 69 16 97/48 L 98 07/11/17 07:45 07/11/17 07:45 07/11/17 07:45 07/11/17 07:45 07/11/17 07:45 07/08/17 07/08/17 07/10/17 19:30 20:09 07:49 RBC 3.54 L 2.95 L Hgb 10.7 L 8.9 L Hct 31.9 L 26.3 L Urine Opiates Screen NEGATIVE - Discharge information/Instructions Discharge Activity: Activity As Tolerated, Balance Activity w/Rest, No Lifting Over 10 Pounds, No Lifting/Push/Pulling, Pelvic Rest Discharge Diet: As Tolerated, Regular Disposition: HOME, SELF-CARE Follow up with: [facility] in: 4, Weeks
[2017-07-11 11:42] VITALS: BP 114/66
== END 2017-07-11 14:42 | disposition home or self-care (01) | DRG 775 ==
LOC: LR 19:09 → 2S 07-09 22:07
PROVIDERS: ADMIT Obstetrics & Gynecology; ATTEND Obstetrics & Gynecology
PROC: 4A1H7CZ Monitoring of Products of Conception, Cardiac Rate, Via Natural or Artificial Opening (ICD-10-PCS; 2017-07-08)
PROC: 10H073Z Insertion of Monitoring Electrode into Products of Conception, Via Natural or Artificial Opening (ICD-10-PCS; 2017-07-08)
PROC: 10E0XZZ Delivery of Products of Conception, External Approach (ICD-10-PCS; principal; 2017-07-09)
PROC: 0HQ9XZZ Repair Perineum Skin, External Approach (ICD-10-PCS; 2017-07-09)
PROC: 3E0P7GC Introduction of Other Therapeutic Substance into Female Reproductive, Via Natural or Artificial Opening (ICD-10-PCS; 2017-07-09)
PROC: 10907ZC Drainage of Amniotic Fluid, Therapeutic from Products of Conception, Via Natural or Artificial Opening (ICD-10-PCS; 2017-07-09)
PROC: 4A1HXCZ Monitoring of Products of Conception, Cardiac Rate, External Approach (ICD-10-PCS; 2017-07-09)
DX: O40.3XX0 Polyhydramnios, third trimester, not applicable or unspecified (principal); O99.354 Diseases of the nervous system complicating childbirth; G43.909 Migraine, unspecified, not intractable, without status migrainosus; O24.425 Gestational diabetes mellitus in childbirth, controlled by oral hypoglycemic drugs; O70.0 First degree perineal laceration during delivery; O36.63X0 Maternal care for excessive fetal growth, third trimester, not applicable or unspecified; O99.344 Other mental disorders complicating childbirth; F32.9 Major depressive disorder, single episode, unspecified; F41.9 Anxiety disorder, unspecified; Z87.891 Personal history of nicotine dependence; Z3A.38 38 weeks gestation of pregnancy; Z37.0 Single live birth
CPT/HCPCS: 36415; 80053; 80307; 81005; 85025; 85027; 86592; 86850; 86900; 86901; J2300; J2370; J2405; J2550; J2590; J3010; J3490

== ENCOUNTER 2018-06-13 17:57 | Emergency (ER) | payer MEDICAID ==
[2018-06-13 18:07] VITALS: BP 123/76
== END 2018-06-13 19:25 | disposition left against medical advice (07) ==
LOC: ER 17:57
DX: Z53.21 Procedure and treatment not carried out due to patient leaving prior to being seen by health care provider (principal); M79.606 Pain in leg, unspecified

== ENCOUNTER 2020-05-22 23:07 | Emergency (ER) | payer MEDICAID, OTHER ==
[2020-05-23] MEDS ORDERED: ONDANSETRON 4 MG TAB.RAPDIS PO ONE (00:50)
[2020-05-23] MEDS ORDERED: NORMAL SALINE 1000 ML 1,000 ML IV ONE (00:51)
[2020-05-23] MEDS ORDERED: KETOROLAC TROMETHAMINE INJ/PF 30 MG/1 ML SDV IV ONE (00:51)
--- NOTE | 2020-05-23 00:52 | ER Document Report ---
ED Medical Screen (RME) - General Chief Complaint: Flu Symptoms Stated Complaint: BODY PAIN/SHORTNESS OF BREATH/VOMITING/COUGH Time Seen by Provider: 05/23/20 00:42 Primary Care Provider: IVETH GALINDO PA [Primary Care Provider] - Follow up as needed Notes: 39-year-old female with chief complaint of 2 days of worsening symptoms including cough, sore throat, fever/chills, headache, body aches, and 2 episodes of vomiting today. She states she is now scared to eat/drink because she might vomit again. She denies any obvious sick exposures. She has not been tested for COVID-19. TRAVEL OUTSIDE OF THE [place] IN LAST 30 DAYS: No - Related Data Allergies/Adverse Reactions: No Known Allergies Allergy (Verified 07/08/17 20:09) Home Medications: simvastatin, fenermine, tramadol prn, fiorcet prn, celexa, vitamin D, xanax Past Medical History - Social History Family history: Reviewed & Not Pertinent Neurological Medical History: Reports: Hx Migraine Renal/ Medical History: Reports: Hx Kidney Stones. Denies: Hx Peritoneal Dialysis Psychiatric Medical History: Reports: Hx Depression - Immunizations Hx Diphtheria, Pertussis, Tetanus Vaccination: No Physical Exam - Vital signs Vitals: Temp Pulse Resp BP Pulse Ox 99.1 F 118 H 20 147/90 H 99 05/22/20 23:22 05/22/20 23:22 05/22/20 23:22 05/22/20 23:22 05/22/20 23:22 - HEENT Pharynx: Erythema - Erythema but no exudates or overt swelling, patent airway, unremarkable uvula - Respiratory Respiratory status: No respiratory distress Breath sounds: Normal Course - Re-evaluation Re-evalutation: 05/23/20 00:52 I have greeted and performed a rapid initial assessment of this patient. A comprehensive ED assessment and evaluation of the patient, analysis of test results and completion of the medical decision making process will be conducted by additional ED providers. - Vital Signs Vital signs: Temp Pulse Resp BP Pulse Ox 99.1 F 118 H 20 147/90 H 99 05/22/20 23:22 05/22/20 23:22 05/22/20 23:22 05/22/20 23:22 05/22/20 23:22 Doctor's Discharge - Discharge Referrals: IVETH GALINDO, PA [Primary Care Provider] - Follow up as needed
[2020-05-23 02:38] LABS: ABSOLUTE LYMPHOCYTES (AUTO) 1.3 10^3/uL (0.5-4.7); ABSOLUTE MONOCYTES (AUTO) 0.5 10^3/uL (0.1-1.4); ABSOLUTE NEUT (AUTO) 2.4 10^3/uL (1.7-8.2); BASOPHILS % (AUTO) 0.4 % (0-2); EOSINOPHILS % (AUTO) 0.2 % (0-6); HEMATOCRIT 38.6 % (36.0-47.0); HEMOGLOBIN 13.9 g/dL (12.0-15.5); LYMPHOCYTES % (AUTO) 30.2 % (13-45); MEAN CORPUSCULAR HEMOGLOBIN 32.9 pg (27.0-33.4); MEAN CORPUSCULAR HGB CONC 35.9 g/dL (32.0-36.0); MEAN CORPUSCULAR VOLUME 92 fl (80-97); MONOCYTES % (AUTO) 12.5 % (3-13); PLATELET COUNT 261 10^3/uL (150-450); RED BLOOD COUNT 4.21 10^6/uL (3.72-5.28); RED CELL DISTRIBUTION WIDTH 13.1 % (11.5-14.0); SEGMENTED NEUTROPHILS % (AUTO) 56.7 % (42-78); TOTAL CELLS COUNTED % (AUTO) 100 %; WHITE BLOOD COUNT 4.3 10^3/uL (4.0-10.5)
[2020-05-23 02:50] LABS: APPEARANCE,URINE SLIGHTLY-CLOUDY; BILIRUBIN,URINE NEGATIVE (NEGATIVE); COLOR,URINE YELLOW; GLUCOSE, URINE NEGATIVE (NEGATIVE); KETONES,URINE NEGATIVE (NEGATIVE); LEUKOCYTE ESTERASE,URINE NEGATIVE (NEGATIVE); NITRITE,URINE NEGATIVE (NEGATIVE); PROTEIN,URINE NEGATIVE (NEGATIVE); UROBILINOGEN,URINE NEGATIVE mg/dL (<2.0)
[2020-05-23 02:54] LABS: ALBUMIN 4.3 g/dL (3.5-5.0); ALKALINE PHOSPHATASE 62 U/L (38-126); ANION GAP 7 (5-19); ASPARTATE AMINO TRANSFERASE 23 U/L (14-36); BILIRUBIN,DIRECT 0.1 mg/dL (0.0-0.4); BILIRUBIN,TOTAL 0.3 mg/dL (0.2-1.3); BLOOD UREA NITROGEN 6 mg/dL (7-20); CALCIUM 9.1 mg/dL (8.4-10.2); CARBON DIOXIDE 29 mmol/L (22-30); CHLORIDE 103 mmol/L (98-107); GLUCOSE 97 mg/dL (75-110); POTASSIUM 4.4 mmol/L (3.6-5.0); TOTAL PROTEIN 7.5 g/dL (6.3-8.2)
[2020-05-23 02:56] LABS: A TYPE INFLUENZA AG NEGATIVE (NEGATIVE); B INFLUENZA AG NEGATIVE (NEGATIVE)
[2020-05-23 03:04] VITALS: BP 148/111
--- NOTE | 2020-05-23 03:08 | RADIOLOGY REPORT (SQ) ---
EXAM DESCRIPTION: XR CHEST 1 VIEW COMPLETED DATE/TME: 05/23/2020 02:32 CLINICAL HISTORY: fever, cough, short of breath COMPARISON: None. FINDINGS: Single frontal radiograph view of the chest. Cardiomediastinal silhouette: Normal size and contour. Lungs: No consolidation, pneumothorax, or pleural effusion. Bones: No acute osseous abnormality. Upper abdomen: No abnormality identified. IMPRESSION: 1. No acute pulmonary process identified.
--- NOTE | 2020-05-23 03:50 | ER Document Report ---
ED General - General Chief Complaint: Flu Symptoms Stated Complaint: BODY PAIN/SHORTNESS OF BREATH/VOMITING/COUGH Time Seen by Provider: 05/23/20 00:42 Primary Care Provider: IVETH GALINDO PA [NO LOCAL MD] - Follow up as needed TRAVEL OUTSIDE OF THE [place] IN LAST 30 DAYS: No - HPI Notes: Patient is a 39-year-old female presents emergency department for evaluation of headache, fevers, body aches, chills, nausea, vomiting. Symptoms of been going on for the last several days. She complains of a headache in the frontal region consistent with her recent migraines. She has had an intermittently productive cough. She has had some runny nose and sore throat. She denies any anosmia. She has had nausea and vomiting but no diarrhea. She complains of generalized body aches as well. She has tried [id number] medications with little in the way of relief. - Related Data Allergies/Adverse Reactions: No Known Allergies Allergy (Verified 07/08/17 20:09) Home Medications: simvastatin, fenermine, tramadol prn, fiorcet prn, celexa, vitamin D, xanax Past Medical History - General Information source: Patient - Social History Smoking Status: Never Smoker Family History: Reviewed & Not Pertinent - Past Medical History Cardiac Medical History: Reports: Hx Hypercholesterolemia Neurological Medical History: Reports: Hx Migraine Renal/ Medical History: Reports: Hx Kidney Stones. Denies: Hx Peritoneal Dialysis Psychiatric Medical History: Reports: Hx Anxiety, Hx Depression - Immunizations Hx Diphtheria, Pertussis, Tetanus Vaccination: No Review of Systems - Review of Systems Constitutional: See HPI EENT: See HPI Cardiovascular: No symptoms reported Respiratory: See HPI Gastrointestinal: See HPI Genitourinary: No symptoms reported Musculoskeletal: See HPI Skin: No symptoms reported Neurological/Psychological: No symptoms reported -: Yes All other systems reviewed and negative Physical Exam - Vital signs Vitals: Temp Pulse Resp BP Pulse Ox 99.1 F 118 H 20 147/90 H 99 05/22/20 23:22 05/22/20 23:22 05/22/20 23:22 05/22/20 23:22 05/22/20 23:22 - Notes Notes: Vital signs reviewed, please refer to chart. Head is normocephalic, atraumatic. Pupils equal round, reactive to light. Oral mucosa is moist. Pharynx is mildly erythematous. Neck is supple without meningismus. Heart is regular rate and rhythm. Lungs are clear to auscultation bilaterally. Abdomen is soft, nontender, normoactive bowel sounds throughout. Extremities without cyanosis, clubbing. Posterior calves are nontender. Peripheral pulses are equal. Skin is warm and dry. Patient is awake, alert, oriented x3. Cranial nerves II - XII are grossly intact without focal neurological deficits. Strength is plus 5 out of 5 bilateral upper and lower extremities. Sensation is intact. Reflexes symmetrical. Intact [id number]-[id number], rapid alternating movements, imsm-mi-kbfm. Course - Re-evaluation Re-evalutation: 05/23/20 03:49 Patient presents to the emergency department for evaluation. She is mildly tachycardic, otherwise vitals were stable. She has a history of migraines, headache is typical of her migraines, she has no meningeal signs. She is a normal neurological exam. She is given IV fluids, Toradol, Zofran. Chest x-ray unremarkable. Patient will be tested for Covid. She is notified that she is a PUI. She is currently stable. 05/23/20 05:31 Patient feeling improved after food and medication. We will send her home as a PUI. She is told to take symptomatic medications, stay hydrated. We will send her home with Zofran to go. She is to return to the ED with worsening concerning symptoms of any sort. - Vital Signs Vital signs: Temp Pulse Resp BP Pulse Ox 99.0 F 97 20 148/111 H 100 05/23/20 03:01 05/23/20 03:01 05/22/20 23:22 05/23/20 03:01 05/23/20 03:01 - Laboratory Result Diagrams: 05/23/20 02:16 05/23/20 02:16 Laboratory results interpreted by me: 05/23/20 02:16 BUN 6 L - Diagnostic Test Radiology reviewed: Reports reviewed Radiology results interpreted by me: 05/23/20 03:50 Chest X-Ray 05/23/20 00:49 IMPRESSION: 1. No acute pulmonary process identified. Discharge - Discharge Clinical Impression: Viral illness, Person under investigation for COVID-19 Migraine Qualifiers: Migraine type: unspecified Status migrainosus presence: without status migrainosus Intractability: not intractable Qualified Code(s): G43.909 - Migraine, unspecified, not intractable, without status migrainosus Condition: Stable Disposition: HOME, SELF-CARE Instructions: COVID-19 Guidance for Persons Under Investigation, Viral Syndrome ([facility]), Migraine Headache ([facility]) Additional Instructions: Rest, stay well-hydrated. You are under investigation for possible COVID-19 inf ection. Please quarantine at home. Stay hydrated. Zofran as needed for nausea. Return to the emergency department worsening or new concerning symptoms of any sort. Otherwise, follow-up with your primary care provider next week. Referrals: IVETH GALINDO PA [NO LOCAL MD] - Follow up as needed
[2020-05-23] MEDS ORDERED: ONDANSETRON ODT 4 MG TAB (6 TAB/ER DISP) PO PRN (05:31)
--- OUTSIDE RECORDS SUMMARY | 2020-05-24 14:50 | XMS REPORT ---
:1980 Author Organization [facility] Address [facility] [place] [address] [place] [address] Care Team Providers Name Role Phone FIRST Primary Care Physician Unavailable Ezra PAC Attending Clinician Unavailable Allergies, Adverse Reactions, Alerts This patient has no known allergies or adverse reactions. Medications Ordered Filled Start Stop Current Ordering Indication Dosage Frequency Signature Comments Components Medication Medication Date Date Medication? Clinician (SIG) Name Name ergocalcife No ergocalcif [place] (vitamin (vitamin D2) 1,250 D2) 1,250 mcg (50,000 mcg unit) (50,000 capsule unit) TAKE ONE capsule CAPSULE TAKE ONE EVERY WEEK CAPSULE EVERY WEEK Macrobid No 1capsul Q12H Macrobid 100 mg e(s) 100 mg capsule capsule Take 1 Take 1 capsule capsule every 12 every 12 hours by hours by oral route oral route for 7 days. for 7 days. phentermine No phentermin 37.5 mg e 37.5 mg tablet TAKE tablet 1 TABLET TAKE 1 EVERY DAY TABLET EVERY DAY Pyridium No 1 TID Pyridium 200 mg 200 mg tablet Take tablet 1 tablet 3 Take 1 times a day tablet 3 by oral times a route for 2 day by days. oral route for 2 days. simvastatin No 1 Q1D simvastati 40 mg n 40 mg tablet TAKE tablet 1 TABLET TAKE 1 EVERY DAY TABLET AT BEDTIME EVERY DAY AT BEDTIME tramadol 50 No tramadol mg tablet 50 mg TAKE 2 tablet TABLETS BY TAKE 2 MOUTH TWICE TABLETS BY DAILY MOUTH NEEDED FOR TWICE 30 DAYS DAILY NEEDED FOR 30 DAYS simvastatin No simvastati 20 mg n 20 mg tablet TAKE tablet 1 TABLET TAKE 1 EVERY DAY TABLET EVERY DAY acyclovir No acyclovir 400 mg 400 mg tablet TAKE tablet 1 TABLET TAKE 1 FIVE TIMES TABLET DAILY FOR 5 FIVE TIMES DAYS DAILY FOR 5 DAYS alprazolam No alprazolam 1 mg tablet 1 mg TAKE 1 tablet TABLET TAKE 1 THREE TIMES TABLET DAILY THREE TIMES DAILY butalbital- No butalbital acetaminoph -acetamino en-caffeine phen-caffe 50 mg-325 ine 50 mg-40 mg mg-325 tablet TAKE mg-40 mg ONE TABLET tablet BY MOUTH TAKE ONE EVERY 4 TABLET BY HOURS MOUTH NEEDED EVERY 4 HOURS NEEDED citalopram No citalopram 20 mg 20 mg tablet TAKE tablet 3 TABLETS TAKE 3 BY MOUTH TABLETS BY EVERY DAY MOUTH EVERY DAY Problems Condition Condition Condition Status Onset Resolution Last Treatin g Comments Name Details Category Date Date Treatment Clinician Date Anxiety Anxiety Problem Active 10-27 00:00: 00 Migraine Migraine Problem Active 10-27 00:00: 00 Not on file Not on file [id number] Procedures Procedure Date / Time Performed Performing Clinician Carito cooper pulse oximetry (PROC) 2020-05-03 00:00:00 OFFICE/OUTPATIENT VISIT, EST 2020-04-18 08:30:00 OFFICE/OUTPATIENT VISIT, EST 2020-03-21 13:00:00 OFFICE/OUTPATIENT VISIT, EST 2018-10-05 12:40:00 Results Test Description Test Time Test Comments Text Results Atomic Results Result Comments Rapid Strep\S\ 2019-08-11 15:50:00 Test Item Value Reference Range Comments Rapid Strep (test code = RAPIDSTREP) negative N/A Assessments Condition Name Status Diagnosis Date Treating Clinici an Anxiety Active 2020-05-03 10:00:45 Restless legs Active 2020-05-03 10:14:32 Obesity Active 2020-05-03 10:15:42 Hyperlipidemia Active 2020-05-03 10:16:11 Long-term drug therapy Active 2020-05-03 11:24:11 Other specified sprain of right wrist, Active initial encounter Pain in right hip Active Trochanteric bursitis, left hip Active Trochanteric bursitis, right hip Active Acute urinary tract infection Active 2020-04-11 11:26:4 1 Other specified sprain of right wrist, Active initial encounter Pain in right wrist Active Pain in right hip Active Pain in left hip Active Chondromalacia, left knee Active Chondromalacia, right knee Active Unspecified internal derangement of Active right knee Unspecified internal derangement of Active left knee Encounters Start End Encounter Admission Attending Care Care Encounter Date/Time Date/Time Type Type Clinicians Facility Department ID 2020-05-03 2020-05-03 Karina [facility] [id number] 00:00:00 00:00:00 Yoj[facility] [address] PA: [address] & [place] [address], Ph. 2020-04-18 2020-04-18 Outpatient Ezra Urrutia [id number] 08:30:00 08:30:00 PAC, [facility] [id number] \T\ Sports [id number] Medicine [id number] 2020-04-11 2020-04-11 Karina N[facility] [id number] 00:00:00 00:00:00 [facility] [address] PA: 2019 & [place] [address], Ph. 2020-03-21 2020-03-21 Outpatient Ezra Urrutia [id number] 13:00:00 13:00:00 PAC, [facility] [id number] \T\ Sports [id number] Medicine F33 2019-10-05 2019-10-05 [facility] [id number] 00:00:00 00:00:00 2019-10-04 2019-10-04 [facility] [id number] 00:00:00 00:00:00 2018-10-05 2018-10-05 Outpatient GRETCHEN Munguia [id number] 12:40:00 12:40:00 [facility] [id number] \T\ Sports [id number] Medicine NB [id number] Plan of Treatment Planned Activity Planned Date Details Comments Future Scheduled Test [code = ] Future Scheduled Test [code = ] Future Scheduled Test [code = ] Future Scheduled Test [code = ] Future Appointment 2020-05-31 11:30:00 Karina Barajas, [address] [place] [address] Social History Smoking Status Start Date Stop Date Never Smoker Vital Signs Vital Name Observation Time Observation Value Comments BP Diastolic 2020-05-03 00:00:00 74 mm[Hg] Height 2020-05-03 00:00:00 66 [in_i] BMI (Body Mass Index) 2020-05-03 00:00:00 32.3 kg/m2 BP Systolic 2020-05-03 00:00:00 115 mm[Hg] Body Weight 2020-05-03 00:00:00 200.2 [lb_av] Height 2020-04-11 00:00:00 66 [in_i] BMI (Body Mass Index) 2020-04-11 00:00:00 30.3 kg/m2 Body Weight 2020-04-11 00:00:00 188 [lb_av] Height 2020-04-11 00:00:00 66 [in_i] BMI (Body Mass Index) 2020-04-11 00:00:00 30.3 kg/m2 Body Weight 2020-04-11 00:00:00 188 [lb_av] Hospital Discharge Instructions 1. Acute urinary tract infection Macrobid 100 mg capsule Pyridium 200 mg tablet Discussion Note After performing a Medical Screening Examination, I estimate there is LOW risk for ACUTE APPENDICITIS, BOWEL OBSTRUCTION, ACUTE CHOLECYSTITIS, PERFORATED DIVERTICULITIS, NEPHROLITHIASIS, INCARCERATED HERNIA, PANCREATITIS, PELVIC INFLAMMATORY DISEASE, PERFORATED ULCER, ECTOPIC , or TUBO-OVARIAN ABSCESS, thus I consider the discharge disposition reasonable. Also, there is no evidence of peritonitis, sepsis, or toxicity. The patient and I have discussed the diagnosis and risks, and we agreewith discharging home with close follow-up with the understanding that symptoms and presentations can change. We also discussed returning to the Office immediately or go directly to the ED if new or acutely worsening symptoms occur. We have discussed the symptoms which are most concerning (e.g., bloody stool, fever, changing or worsening pain, vomiting, anuria, or robert hematuria) that necessitate immediate presentation to the ED. Patient educational handouts: No information available.
== END 2020-05-23 05:58 | disposition home or self-care (01) ==
LOC: ER 23:07
DX: U07.1 COVID-19 (principal); G43.909 Migraine, unspecified, not intractable, without status migrainosus; R50.9 Fever, unspecified; R11.2 Nausea with vomiting, unspecified; R05 Cough; R00.0 Tachycardia, unspecified; R09.89 Other specified symptoms and signs involving the circulatory and respiratory systems; J02.9 Acute pharyngitis, unspecified; E78.00 Pure hypercholesterolemia, unspecified; F32.9 Major depressive disorder, single episode, unspecified; F41.9 Anxiety disorder, unspecified; Z79.899 Other long term (current) drug therapy
CPT/HCPCS: 99284; 96361; 96374; 36415; 87070; 87880; 84703; 85025; 87635; 80053; 81001; 87804; 71045; S0119; J1885; J7030; C9803

== ENCOUNTER → 2020-07-22 | Outpatient (CLI) | payer OTHER ==
--- NOTE | 2020-07-22 14:11 | RADIOLOGY REPORT (SQ) ---
EXAM DESCRIPTION: MRI RT LOWER JOINT WITHOUT IMAGES COMPLETED DATE/TIME: 07/22/2020 11:40 am REASON FOR STUDY: (M25.561)PAIN IN RIGHT KNEE M25.561 PAIN IN RIGHT KNEE COMPARISON: None. TECHNIQUE: Rightknee images acquired and stored on PACS. Multiplanar images include fat sensitive s equences as T1, water sensitive sequences as FST2 or STIR, cartilage sensitive sequences as FSPD, and gradient echo sequences. LIMITATIONS: None. FINDINGS: JOINT AND BURSAE: Trace fluid. No large effusion. BONE CORTEX AND MARROW: No alteration of signal to suggest marrow replacement. No worrisome bone lesi ons. No occult fracture. ACL: Intact. No degeneration or ganglion cyst. PCL: Intact. MCL: Intact. No periligamentous edema or fluid. LCL: Intact. No periligamentous edema or fluid. MEDIAL MENISCUS: No tears. No abnormal signal. LATERAL MENISCUS: Mild fraying along the free margin. More extensive tear is not suggested. MEDIAL COMPARTMENT: Cartilage preserved. No bone bruises or reactive marrow edema. No osteophytes. LATERAL COMPARTMENT: Probable fissuring in the condyle cartilage. No reactive bone changes. PATELLA: Irregular chondral thinning particularly in the lateral facet. No reactive bone changes. EXTENSOR MECHANISM: Intact. Quadriceps and patella tendons normal. SOFT TISSUES: Adjacent muscles and subcutaneous tissues normal. Normal flow void in popliteal artery and vein. OTHER: No other significant finding. IMPRESSION: 1. Minimal lateral meniscus changes as above. 2. Mild chondral disease as above. TECHNICAL DOCUMENTATION: JOB ID: [id number] 2010 [employer]- All Rights Reserved Reading location - IP/workstation name: [email or web address]
== END ==
LOC: RAD 10:51
PROVIDERS: ATTEND Physician Assistant
DX: M25.561 Pain in right knee (principal)